=== PATIENT | male | born 1970 | race American Indian/Alaskan Native ===

== ENCOUNTER 2017-04-28 01:52 | Emergency (ER) | payer MEDICAID, OTHER ==
[2017-04-28] MEDS ORDERED: Atenolol 25 MG Tab PO ONE (02:05)
[2017-04-28 02:37] LABS: CHLORIDE,CL 108 mmol/L (101-111); SODIUM,NA 141 mmol/L (135-145)
--- NOTE | 2017-04-28 02:53 | EDM.PDOC ---
ED HPI GENERAL MEDICAL PROBLEM - General Chief Complaint: Drug or Alcohol Abuse Stated Complaint: MEDICAL CLEARANCE Time Seen by Provider: 04/28/17 02:00 Source of Information: Reports: Patient, Police History Limitations: Reports: Intoxication - History of Present Illness INITIAL COMMENTS - FREE TEXT/NARRATIVE: ED via [facility] for medical clearance. Patient reported to have been picked up on warrant and was intoxicated. Breathalyzed ETOH greater than 300 (312) so was sent to ED for clearance. Patient voices no c/o, Admits to have been drinking heavily past few days due to girlfriend being hospitalized, primarily Vodka and beer. Tearful that he is going to pen[facility]. - Related Data Allergies Allergy/AdvReac Type Severity Reaction Status Date / Time No Known Allergies Allergy Verified 04/28/17 01:57 Home Meds: Home Meds Atenolol 0 mg PO ASDIRECTED 04/28/17 [History] Gabapentin [Neurontin] 600 mg PO ASDIRECTED 04/28/17 [History] Lisinopril 0 mg PO ASDIRECTED 04/28/17 [History] Past Medical History HEENT History: Reports: None Cardiovascular History: Reports: Hypertension Immunologic History: Reports: None Social & Family History - Tobacco Use Smoking Status *Q: Never Smoker - Recreational Drug Use Recreational Drug Use: No ED ROS GENERAL - Review of Systems Review Of Systems: ROS reveals no pertinent complaints other than HPI. ED EXAM, BEHAVIORAL HEALTH - Physical Exam Exam: See Below Exam Limited By: Intoxication General Appearance: Alert, No Apparent Distress, Obese Eye Exam: Bilateral Eye: EOMI, PERRL Ears: Normal External Exam, Hearing Loss Throat/Mouth: Normal Inspection Head: Atraumatic, Normocephalic Neck: Normal Inspection, Full Range of Motion Respiratory/Chest: No Respiratory Distress, Lungs Clear, Normal Breath Sounds Cardiovascular: Normal Peripheral Pulses GI/Abdominal: Normal Bowel Sounds Back Exam: Normal Inspection Extremities: Normal Inspection Neurological: Alert, Oriented x 3, Other (responses slow) Psychiatric: Alert, Normal Affect, Depressed Mood, Tearful. No: Suicidal Thoughts Skin Exam: Warm, Dry, Intact, Normal color COURSE, BEHAVIORAL HEALTH COMP - Course Vital Signs: Last Vital Signs Temp 98.9 F 04/28/17 01:58 Pulse 110 H 04/28/17 02:24 Resp 18 04/28/17 02:24 BP 139/89 04/28/17 02:24 Pulse Ox 95 04/28/17 02:24 Orders, Labs, Meds: Laboratory Tests 04/28/17 04/28/17 04/28/17 Range/Units 02:07 02:07 02:10 WBC 6.5 (5.0-10.0) 10^3/uL RBC 5.05 (4.6-6.2) 10^6/uL Hgb 16.1 (14.0-18.0) g/dL Hct 47.5 (40.0-54.0) % MCV 94.1 (80-100) fL MCH 31.9 (27.0-34.0) pg MCHC 33.9 (33.0-35.0) g/dL Plt Count 148 L (150-450) 10^3/uL Neut % (Auto) 70.6 (42.2-75.2) % Lymph % (Auto) 20.5 (20.5-50.1) % [place] % (Auto) 6.7 (2-8) % Eos % (Auto) 1.7 (1.0-3.0) % Baso % (Auto) 0.5 (0.0-1.0) % Sodium (135-145) mmol/L Potassium (3.6-5.0) mmol/L Chloride (101-111) mmol/L Carbon Dioxide (21.0-31.0) mmol/L Anion Gap BUN (7-18) mg/dL Creatinine (0.6-1.3) mg/dL Est Cr Clr Drug Dosing Estimated GFR (MDRD) BUN/Creatinine Ratio Glucose (74-105) mg/dL Calcium (8.4-10.2) mg/dl Total Bilirubin (0.2-1.0) mg/dL AST (10-42) IU/L ALT (10-60) IU/L Alkaline Phosphatase (42-121) IU/L Total Protein (6.7-8.2) g/dl Albumin (3.2-5.5) g/dl Globulin Albumin/Globulin Ratio Urine Color Yellow (YELLOW) Urine Appearance Clear (CLEAR) Urine pH 5.5 (5.0-9.0) Ur Specific [place] <= 1.005 (1.005-1.030) Urine Protein 30 H (NEGATIVE) Urine Glucose (UA) Negative (NEGATIVE) Urine Ketones Negative (NEGATIVE) Urine Occult Blood Negative (NEGATIVE) Urine Nitrite Negative (NEGATIVE) Urine Bilirubin Negative (NEGATIVE) Urine Urobilinogen 0.2 (0.2-1.0) mg/dL Ur Leukocyte Esterase Negative (NEGATIVE) Urine RBC 0-5 /HPF Urine WBC 0-5 (0-5/HPF) /HPF Ur Epithelial Cells Few /HPF Urine Bacteria Moderate H (0-FEW/HPF) /HPF Urine Opiates Screen Negative (NEGATIVE) Ur Oxycodone Screen Negative (NEGATIVE) Urine Methadone Screen Negative (NEGATIVE) Ur Barbiturates Screen Negative (NEGATIVE) U Tricyclic Antidepress Negative (NEGATIVE) Ur Phencyclidine Scrn Negative (NEGATIVE) Ur Amphetamine Screen Negative (NEGATIVE) U Methamphetamines Scrn Positive H (NEGATIVE) Urine MDMA Screen Negative (NEGATIVE) U Benzodiazepines Scrn Negative (NEGATIVE) Urine Cocaine Screen Negative (NEGATIVE) U Marijuana (THC) Screen Negative (NEGATIVE) Ethyl Alcohol mg/dL 04/28/17 Range/Units 02:10 WBC (5.0-10.0) 10^3/uL RBC (4.6-6.2) 10^6/uL Hgb (14.0-18.0) g/dL Hct (40.0-54.0) % MCV (80-100) fL MCH (27.0-34.0) pg MCHC (33.0-35.0) g/dL Plt Count (150-450) 10^3/uL Neut % (Auto) (42.2-75.2) % Lymph % (Auto) (20.5-50.1) % [place] % (Auto) (2-8) % Eos % (Auto) (1.0-3.0) % Baso % (Auto) (0.0-1.0) % Sodium 141 (135-145) mmol/L Potassium 3.6 (3.6-5.0) mmol/L Chloride 108 (101-111) mmol/L Carbon Dioxide 21.0 (21.0-31.0) mmol/L Anion Gap 15.6 BUN 7 (7-18) mg/dL Creatinine 0.9 (0.6-1.3) mg/dL Est Cr Clr Drug Dosing TNP Estimated GFR (MDRD) > 60 BUN/Creatinine Ratio 7.77 Glucose 150 H (74-105) mg/dL Calcium 8.4 (8.4-10.2) mg/dl Total Bilirubin 0.5 (0.2-1.0) mg/dL AST 66 H (10-42) IU/L ALT 40 (10-60) IU/L Alkaline Phosphatase 100 (42-121) IU/L Total Protein 8.4 H (6.7-8.2) g/dl Albumin 4.1 (3.2-5.5) g/dl Globulin 4.3 Albumin/Globulin Ratio 0.95 Urine Color (YELLOW) Urine Appearance (CLEAR) Urine pH (5.0-9.0) Ur Specific [place] (1.005-1.030) Urine Protein (NEGATIVE) Urine Glucose (UA) (NEGATIVE) Urine Ketones (NEGATIVE) Urine Occult Blood (NEGATIVE) Urine Nitrite (NEGATIVE) Urine Bilirubin (NEGATIVE) Urine Urobilinogen (0.2-1.0) mg/dL Ur Leukocyte Esterase (NEGATIVE) Urine RBC /HPF Urine WBC (0-5/HPF) /HPF Ur Epithelial Cells /HPF Urine Bacteria (0-FEW/HPF) /HPF Urine Opiates Screen (NEGATIVE) Ur Oxycodone Screen (NEGATIVE) Urine Methadone Screen (NEGATIVE) Ur Barbiturates Screen (NEGATIVE) U Tricyclic Antidepress (NEGATIVE) Ur Phencyclidine Scrn (NEGATIVE) Ur Amphetamine Screen (NEGATIVE) U Methamphetamines Scrn (NEGATIVE) Urine MDMA Screen (NEGATIVE) U Benzodiazepines Scrn (NEGATIVE) Urine Cocaine Screen (NEGATIVE) U Marijuana (THC) Screen (NEGATIVE) Ethyl Alcohol 342 mg/dL Medications Discontinued Medications Generic Name Dose Route Start Last Admin Trade Name Freq PRN Reason Stop Dose Admin Atenolol 25 mg 04/28/17 02:05 04/28/17 02:14 Tenormin PO 04/28/17 02:06 25 mg ONETIME ONE Administration Departure - Departure Time of Disposition: 02:50 Disposition: Home, Self-Care 01 Condition: fair Clinical Impression: Alcohol abuse, Drug abuse - Discharge Information Instructions: Alcohol Intoxication, [id number] Forms: ED Department Discharge Additional Instructions: Detox [facility] nurse to assess per facility detox protocol
--- NOTE | 2017-06-01 12:45 | EKG ---
04/28/2017 - STEVIE ZUÑIGA - A 12-lead EKG shows sinus tachycardia with heart rate of 127. No significant ST elevation or ST depression noted on this 12-lead EKG. [facility] /[id number]
== END 2017-04-28 02:56 | disposition home or self-care (01) ==
LOC: DL.ED 01:52
DX: F10.10 Alcohol abuse, uncomplicated (principal); F19.10 Other psychoactive substance abuse, uncomplicated; I10 Essential (primary) hypertension; Y90.8 Blood alcohol level of 240 mg/100 ml or more
CPT/HCPCS: 36415; 80053; 80305; 81001; 85025; 93005; 99283; A9270; G0480

== ENCOUNTER 2018-07-17 17:06 | Emergency (ER) | payer MEDICAID, OTHER ==
[2018-07-17 17:11] VITALS: BP 152/90
[2018-07-17] MEDS ORDERED: Iopamidol 612 MG/ML 100 ML Bottle IUTERINE ONE (18:00)
[2018-07-17 18:02] LABS: ACETAMINOPHEN < 10
--- NOTE | 2018-07-17 18:48 | EDM.PDOC ---
Scribed by Rosalba Garcia 07/17/18 1435 for Dhiraj Ramos PA <Dhiraj Ramos - Last Filed: 07/17/18 18:48> ED HPI GENERAL MEDICAL PROBLEM - General Chief Complaint: Gastrointestinal Problem Stated Complaint: GENERALIZED WEAKNESS Time Seen by Provider: 07/17/18 17:11 Source of Information: Reports: Patient, EMS, EMS Notes Reviewed, RN, RN Notes Reviewed History Limitations: Reports: No Limitations - History of Present Illness INITIAL COMMENTS - FREE TEXT/NARRATIVE: This is a 47-year-old man with a history of alcohol abuse, essential hypertension and asthma who was transferred here from [facility] for generalized weakness, thrombocytopenia and hyperbilirubinemia. presents to [facility] with 3 days of generalized weakness. Symptoms are associated with nausea and several episodes of vomiting of food contents. The patient also has lightheadedness that is worse when he stands. No abdominal pain, jaundice, melena or blood in his stool. No dysuria or frequency. No shortness of breath, wheezing,cough or chest pain. The patient does have a history of chronic alcohol abuse. He drinks about 10 beers a day with several shots of hard liquor. Last drink was done week ago. Patient denies IV drug use. Patient has been taking 8 to 9 tablets of Tylenol and 6 to 7 tablets of Ibuprofen per day for the last week for his osteoarthritic complaints. Onset: Gradual Duration: Constant Location: Reports: Generalized (weakness) Severity: Moderate Improves with: Reports: Rest Worsens with: Reports: Other (activity) - Related Data Allergies Allergy/AdvReac Type Severity Reaction Status Date / Time Penicillins Allergy Nausea and Verified 07/17/18 17:12 Vomiting Home Meds: Home Meds Atenolol 100 mg PO DAILY 04/28/17 [History] Gabapentin [Neurontin] 600 mg PO TID 04/28/17 [History] Albuterol Sulfate [Proair Hfa] 2 puff INH Q4HR PRN 07/17/18 [History] Loratadine 10 mg PO DAILY 07/17/18 [History] Losartan Potassium 25 mg PO DAILY 07/17/18 [History] Past Medical History HEENT History: Reports: None Cardiovascular History: Reports: Hypertension Respiratory History: Reports: Asthma Immunologic History: Reports: None Social & Family History - Alcohol Use Alcohol Use History: Yes Days Per Week of Alcohol Use: 7 Number of Drinks Per Day Comment: 12 - Recreational Drug Use Recreational Drug Use: No ED ROS GENERAL - Review of Systems Review Of Systems: ROS reveals no pertinent complaints other than HPI. ED EXAM, GI/ABD - Physical Exam Exam: See Below Exam Limited By: No Limitations General Appearance: Alert, WD/WN, No Apparent Distress Eyes: Bilateral: Normal Appearance Nose: Normal Inspection, Normal Mucosa, No Blood Head: Atraumatic, Normocephalic Neck: Normal Inspection, Supple, Non-Tender, Full Range of Motion Respiratory/Chest: No Respiratory Distress, Lungs Clear, Normal Breath Sounds, No Accessory Muscle Use, Chest Non-Tender Cardiovascular: Normal Peripheral Pulses, Regular Rate, Rhythm, No Edema, No Gallop, No JVD, No Murmur, No Rub GI/Abdominal Exam: Normal Bowel Sounds, Soft, Non-Tender, No Organomegaly, No Distention, No Abnormal Bruit, No Mass, Pelvis Stable (Male) Exam: Deferred Rectal (Males) Exam: Deferred Extremities: Normal Inspection, Normal Range of Motion, Non-Tender, Normal Capillary Refill, No Pedal Edema Neurological: Alert, Oriented, CN II-XII Intact, Normal Cognition, Normal Gait, Normal Reflexes, No Motor/Sensory Deficits Psychiatric: Normal Affect, Normal Mood Course - Vital Signs Last Recorded V/S: Last Vital Signs Temp 98.7 F 07/17/18 17:06 Pulse 71 07/17/18 17:06 Resp 18 07/17/18 17:06 BP 152/90 H 07/17/18 17:06 Pulse Ox 95 07/17/18 17:06 - Orders/Labs/Meds Orders: Active Orders 24 hr Category Date Time Status DRUG SCREEN URINE BIORAD [URCHEM] Stat Lab 07/17/18 17:21 Ordered UA W/MICROSCOPIC [URIN] Stat Lab 07/17/18 17:21 Ordered Labs: Laboratory Tests 07/17/18 07/17/18 Range/Units 17:27 17:27 Magnesium 1.5 L (1.8-2.5) mg/dL Ammonia 69 H (11-35) umol/L Amylase 44 (28-100) U/L Lipase 73 H (22-51) U/L Salicylates < 4 Acetaminophen < 10 Meds: Medications Discontinued Medications Generic Name Dose Route Start Last Admin Trade Name Freq PRN Reason Stop Dose Admin Iopamidol 100 ml 07/17/18 18:00 Isovue-300 (61%) IUTERINE 07/17/18 18:01 ONETIME ONE Departure - Departure Disposition: Home, Self-Care 01 Clinical Impression: Gastroenteritis Cholelithiasis Qualifiers: Cholelithiasis location: other site Biliary obstruction: without biliary obstruction Qualified Code(s): K80.80 - Other cholelithiasis without obstruction Cirrhosis of liver Qualifiers: Hepatic cirrhosis type: alcoholic cirrhosis Ascites presence: without ascites Qualified Code(s): K70.30 - Alcoholic cirrhosis of liver without ascites - Discharge Information Instructions: Cholelithiasis, [id number], Viral Gastroenteritis, Adult, Easy- to-Read, Cirrhosis Forms: ED Department Discharge Additional Instructions: Follow up with your primary care facility Refrain from drinking alcohol <Salma Sanders - Last Filed: 07/17/18 19:37> Course - Re-Assessments/Exams Free Text/Narrative Re-Assessment/Exam: 07/17/18 19:34 CT Abdomen and Pelvis: Findings consistent with cirrhosis, Gastroduodenitis, Cholelithiasis See rad report Departure - Departure Time of Disposition: 19:35 Condition: Fair - Discharge Information *PRESCRIPTION DRUG MONITORING PROGRAM REVIEWED*: No *COPY OF PRESCRIPTION DRUG MONITORING REPORT IN PATIENT KELSIE: No I have read and agree with the documentation that has been completed regarding this visit. By signing this record, I attest that the documentation was completed in my physical presence and is an accurate record of the encounter.
== END 2018-07-17 19:43 | disposition home or self-care (01) ==
LOC: DL.ED 17:06
DX: K52.9 Noninfective gastroenteritis and colitis, unspecified (principal); K80.80 Other cholelithiasis without obstruction; K70.30 Alcoholic cirrhosis of liver without ascites; I10 Essential (primary) hypertension; Z79.899 Other long term (current) drug therapy; Z88.0 Allergy status to penicillin
CPT/HCPCS: 36415; 74177; 82140; 82150; 83690; 83735; 99285; G0480; Q9967

== ENCOUNTER 2019-11-28 18:45 | Emergency (ER) | payer MEDICAID, OTHER ==
[2019-11-28] MEDS ORDERED: levETIRAcetam 500 MG in Sodium Chloride 0.9% 100 ML IV ONE (19:17)
[2019-11-28 20:10] LABS: CHLORIDE,CL 102 mmol/L (101-111); SODIUM,NA 134 mmol/L (135-145)
[2019-11-28 20:28] VITALS: BP 118/59; PULSE 82
[2019-11-28] MEDS ORDERED: Lactulose Soln 10 GM/15 ML 30 ML UD Cup PO ONE ×2 (20:47→20:48)
--- NOTE | 2019-11-28 20:53 | EDM.PDOC ---
ED HPI GENERAL MEDICAL PROBLEM - General Chief Complaint: Neurological Problem Stated Complaint: GENERAL, AMBULANCE? Time Seen by Provider: 11/28/19 20:30 Source of Information: Reports: Patient, EMS History Limitations: Reports: No Limitations - History of Present Illness INITIAL COMMENTS - FREE TEXT/NARRATIVE: ED with report of witnessed seizure generalized and urinary incontinence lasting 3-4 minutes. Postictal period of confusion and lethargy. Patient alert and oriented on arrival. Denies injury. States has not been sleeping well due to arthritis pain. Denies use of alcohol or drugs. Appears jaundice. patient denies noticing. Has not had recent vomiting. Has been using creams supplied by [facility] for pain. States has not used any tylenol or ibuprofen type products for many months since was causing elevation in BP - Related Data Allergies Allergy/AdvReac Type Severity Reaction Status Date / Time Penicillins Allergy Nausea and Verified 11/28/19 18:51 Vomiting Home Meds: Home Meds atenoloL [Atenolol] 100 mg PO DAILY 04/28/17 [History] Albuterol Sulfate [Proair Hfa] 2 puff INH Q4HR PRN 07/17/18 [History] Loratadine 10 mg PO DAILY 07/17/18 [History] Losartan Potassium 25 mg PO DAILY 07/17/18 [History] Past Medical History HEENT History: Reports: None Cardiovascular History: Reports: Hypertension Respiratory History: Reports: Asthma Musculoskeletal History: Reports: Arthritis Neurological History: Reports: Neuropathy, Peripheral Immunologic History: Reports: None Social & Family History - Family History Family Medical History: Noncontributory - Tobacco Use Smoking Status *Q: Unknown Ever Smoked Second Hand Smoke Exposure: No - Caffeine Use Caffeine Use: Reports: None - Recreational Drug Use Recreational Drug Use: No ED ROS GENERAL - Review of Systems Review Of Systems: Comprehensive ROS is negative, except as noted in HPI. - Physical Exam Exam: See Below Exam Limited By: No Limitations General Appearance: Alert, No Apparent Distress, Obese Eye Exam: Bilateral Eye: EOMI, PERRL, Other (icterus) Ears: Normal External Exam, Normal TMs Nose: Normal Inspection Throat/Mouth: Normal Inspection, Normal Lips, Normal Voice Head Exam: Atraumatic, Normocephalic Neck: Normal Inspection Respiratory/Chest: No Respiratory Distress, Lungs Clear, Normal Breath Sounds Cardiovascular: Normal Peripheral Pulses, Regular Rate, Rhythm GI/Abdominal: Normal Bowel Sounds, Non-Tender Neuro Exam (Abbreviated): Alert, Oriented, Normal Cognition, No Motor/Sensory Deficits Back Exam: Full Range of Motion Extremities: Normal Range of Motion Psychiatric: Flat Affect Skin Exam: Warm, Dry, Intact, Jaundice. No: Petechiae, Rash Course - Vital Signs Last Recorded V/S: Last Vital Signs Temp 98.2 F 11/28/19 20:26 Pulse 82 11/28/19 20:26 Resp 16 11/28/19 20:26 BP 118/59 L 11/28/19 20:26 Pulse Ox 97 11/28/19 20:26 - Orders/Labs/Meds Orders: Active Orders 24 hr Category Date Time Status EKG 12 Lead [EKG Documentation Completion] [RC] URGENT Care 11/28/19 19:21 Active Labs: Laboratory Tests 11/28/19 11/28/19 11/28/19 Range/Units 19:34 19:34 19:34 WBC 4.1 L (5.0-10.0) 10^3/uL RBC 3.19 L (4.6-6.2) 10^6/uL Hgb 11.2 L D (14.0-18.0) g/dL Hct 32.9 L (40.0-54.0) % MCV 103.1 H D (80-100) fL MCH 35.1 H (27.0-34.0) pg MCHC 34.0 (33.0-35.0) g/dL Plt Count 67 L D (150-450) 10^3/uL Neut % (Auto) 66.2 (42.2-75.2) % Lymph % (Auto) 13.0 L (20.5-50.1) % [place] % (Auto) 18.6 H (2-8) % Eos % (Auto) 1.7 (1.0-3.0) % Baso % (Auto) 0.5 (0.0-1.0) % PT (9.0-12.0) SEC INR (0.9-1.2) Sodium 134 L (135-145) mmol/L Potassium 4.0 (3.6-5.0) mmol/L Chloride 102 (101-111) mmol/L Carbon Dioxide 22.0 (21.0-31.0) mmol/L Anion Gap 14.0 BUN 8 (7-18) mg/dL Creatinine 0.8 (0.6-1.3) mg/dL Est Cr Clr Drug Dosing 104.43 mL/min Estimated GFR (MDRD) > 60 BUN/Creatinine Ratio 10.00 Glucose 160 H (74-105) mg/dL Calcium 7.5 L (8.4-10.2) mg/dl Magnesium 1.7 L (1.8-2.5) mg/dL Total Bilirubin 7.0 H (0.2-1.0) mg/dL AST 85 H (10-42) IU/L ALT 25 (10-60) IU/L Alkaline Phosphatase 221 H (42-121) IU/L Ammonia 66 H (11-35) umol/L Total Protein 7.0 (6.7-8.2) g/dl Albumin 2.4 L (3.2-5.5) g/dl Globulin 4.6 Albumin/Globulin Ratio 0.52 Amylase 71 (28-100) U/L Lipase 82 H (22-51) U/L Urine Color (YELLOW) Urine Appearance (CLEAR) Urine pH (5.0-9.0) Ur Specific [place] (1.005-1.030) Urine Protein (NEGATIVE) Urine Glucose (UA) (NEGATIVE) Urine Ketones (NEGATIVE) Urine Occult Blood (NEGATIVE) Urine Nitrite (NEGATIVE) Urine Bilirubin (NEGATIVE) Urine Urobilinogen (0.2-1.0) mg/dL Ur Leukocyte Esterase (NEGATIVE) Urine RBC /HPF Urine WBC (0-5/HPF) /HPF Ur Epithelial Cells (NOT SEEN) /HPF Amorphous Sediment (NOT SEEN) /HPF Urine Bacteria (0-FEW/HPF) /HPF Hyaline Casts (NOT SEEN) /LPF Urine Mucus (NOT SEEN) /LPF Urine Opiates Screen (NEGATIVE) Ur Oxycodone Screen (NEGATIVE) Urine Methadone Screen (NEGATIVE) Ur Barbiturates Screen (NEGATIVE) U Tricyclic Antidepress (NEGATIVE) Ur Phencyclidine Scrn (NEGATIVE) Ur Amphetamine Screen (NEGATIVE) U Methamphetamines Scrn (NEGATIVE) Urine MDMA Screen (NEGATIVE) U Benzodiazepines Scrn (NEGATIVE) Urine Cocaine Screen (NEGATIVE) U Marijuana (THC) Screen (NEGATIVE) Ethyl Alcohol < 5 mg/dL 11/28/19 11/28/19 11/28/19 Range/Units 19:34 20:20 20:20 WBC (5.0-10.0) 10^3/uL RBC (4.6-6.2) 10^6/uL Hgb (14.0-18.0) g/dL Hct (40.0-54.0) % MCV (80-100) fL MCH (27.0-34.0) pg MCHC (33.0-35.0) g/dL Plt Count (150-450) 10^3/uL Neut % (Auto) (42.2-75.2) % Lymph % (Auto) (20.5-50.1) % Scott % (Auto) (2-8) % Eos % (Auto) (1.0-3.0) % Baso % (Auto) (0.0-1.0) % PT 16.2 H (9.0-12.0) SEC INR 1.6 H (0.9-1.2) Sodium (135-145) mmol/L Potassium (3.6-5.0) mmol/L Chloride (101-111) mmol/L Carbon Dioxide (21.0-31.0) mmol/L Anion Gap BUN (7-18) mg/dL Creatinine (0.6-1.3) mg/dL Est Cr Clr Drug Dosing mL/min Estimated GFR (MDRD) BUN/Creatinine Ratio Glucose (74-105) mg/dL Calcium (8.4-10.2) mg/dl Magnesium (1.8-2.5) mg/dL Total Bilirubin (0.2-1.0) mg/dL AST (10-42) IU/L ALT (10-60) IU/L Alkaline Phosphatase (42-121) IU/L Ammonia (11-35) umol/L Total Protein (6.7-8.2) g/dl Albumin (3.2-5.5) g/dl Globulin Albumin/Globulin Ratio Amylase (28-100) U/L Lipase (22-51) U/L Urine Color [place] (YELLOW) Urine Appearance Slightly cloudy (CLEAR) Urine pH 5.5 (5.0-9.0) Ur Specific [place] >= 1.030 (1.005-1.030) Urine Protein 30 H (NEGATIVE) Urine Glucose (UA) Negative (NEGATIVE) Urine Ketones Negative (NEGATIVE) Urine Occult Blood Small H (NEGATIVE) Urine Nitrite Negative (NEGATIVE) Urine Bilirubin Moderate H (NEGATIVE) Urine Urobilinogen 2.0 H (0.2-1.0) mg/dL Ur Leukocyte Esterase Negative (NEGATIVE) Urine RBC 5-10 H /HPF Urine WBC 5-10 H (0-5/HPF) /HPF Ur Epithelial Cells Rare (NOT SEEN) /HPF Amorphous Sediment Few (NOT SEEN) /HPF Urine Bacteria Few (0-FEW/HPF) /HPF Hyaline Casts Rare H (NOT SEEN) /LPF Urine Mucus Few H (NOT SEEN) /LPF Urine Opiates Screen Negative (NEGATIVE) Ur Oxycodone Screen Negative (NEGATIVE) Urine Methadone Screen Negative (NEGATIVE) Ur Barbiturates Screen Negative (NEGATIVE) U Tricyclic Antidepress Negative (NEGATIVE) Ur Phencyclidine Scrn Negative (NEGATIVE) Ur Amphetamine Screen Negative (NEGATIVE) U Methamphetamines Scrn Negative (NEGATIVE) Urine MDMA Screen Negative (NEGATIVE) U Benzodiazepines Scrn Negative (NEGATIVE) Urine Cocaine Screen Negative (NEGATIVE) U Marijuana (THC) Screen Negative (NEGATIVE) Ethyl Alcohol mg/dL Meds: Medications Discontinued Medications Generic Name Dose Route Start Last Admin Trade Name Freq PRN Reason Stop Dose Admin Levetiracetam 500 mg/ Sodium 105 mls @ 400 mls/hr 11/28/19 19:17 11/28/19 19: 34 Chloride IV 11/28/19 19:31 400 mls/hr ONETIME ONE Administration Lactulose 20 gm 11/28/19 20:47 Cephulac PO 11/28/19 20:48 ONETIME ONE Lactulose 20 gm 11/28/19 20:48 11/28/19 21:09 Cephulac PO 11/28/19 20:49 Not Given ONETIME ONE - Re-Assessments/Exams Free Text/Narrative Re-Assessment/Exam: Transfer to [facility] recommended for further evaluation of jaundice with elevated LFT's and ammonia level. Family at bedside during discussion. Patient made aware of risk or further seizure activity, bleeding and up to from possible complications, continued to refuse despite encouragement from sister. Patient signed AMA form. Recommended Lactulose. Refused initial dose. Departure - Departure Time of Disposition: 20:50 Disposition: Against Medical Advice 07 Condition: Serious Clinical Impression: Hepatic encephalopathy, Hyperammonemia, Seizure, Thrombocytopenia Liver function failure Qualifiers: Liver failure chronicity: acute Hepatic coma status: without hepatic coma Qualified Code(s): K72.00 - Acute and subacute hepatic failure without coma - Discharge Information *PRESCRIPTION DRUG MONITORING PROGRAM REVIEWED*: No *COPY OF PRESCRIPTION DRUG MONITORING REPORT IN PATIENT KELSIE: No Instructions: Hepatic Encephalopathy Forms: ED Department Discharge Additional Instructions: clinic follow up on Sunday No driving No acetaminophin No alcohol lactulose 30mg twice daily Sepsis Event Note - Evaluation Sepsis Screening Result: No Definite Risk - Focused Exam Vital Signs: Vital Signs Temp Pulse Resp BP Pulse Ox 11/28/19 20:26 98.2 F 82 16 118/59 L 97 Date Exam was Performed: 11/29/19 Time Exam was Performed: 05:08 - My Orders Last 24 Hours: My Active Orders 11/28/19 19:21 EKG 12 Lead [EKG Documentation Completion] [RC] URGENT - Assessment/Plan Last 24 Hours: My Active Orders 11/28/19 19:21 EKG 12 Lead [EKG Documentation Completion] [RC] URGENT
== END 2019-11-28 20:47 | disposition left against medical advice (07) ==
LOC: DL.ED 18:45
DX: R56.9 Unspecified convulsions (principal); K72.00 Acute and subacute hepatic failure without coma; E72.20 Disorder of urea cycle metabolism, unspecified; D69.6 Thrombocytopenia, unspecified; J45.909 Unspecified asthma, uncomplicated; I10 Essential (primary) hypertension; M19.90 Unspecified osteoarthritis, unspecified site; Z88.0 Allergy status to penicillin; Z79.899 Other long term (current) drug therapy
CPT/HCPCS: 36415; 70450; 80053; 80305; 80320; 81001; 82140; 82150; 83690; 83735; 85025; 85610; 93005; 99285; J1953; J7050; G0480

== ENCOUNTER 2020-02-21 23:10 | Emergency (ER) | payer MEDICAID, OTHER ==
[2020-02-21 23:25] VITALS: BP 116/67; PULSE 128
--- NOTE | 2020-02-21 23:33 | EDM.PDOC ---
ED HPI GENERAL MEDICAL PROBLEM - General Chief Complaint: Neurological Problem Stated Complaint: AMBULANCE Time Seen by Provider: 02/21/20 23:25 Source of Information: Reports: EMS History Limitations: Reports: Altered Mental Status - History of Present Illness INITIAL COMMENTS - FREE TEXT/NARRATIVE: EMS arrived at scene of pt in bed lying in vomit and faeces and urine and blood. family states pt quit drinking few days ago and had seizures. pt somnolent but arousable but doesn't verbalize. - Related Data Allergies Allergy/AdvReac Type Severity Reaction Status Date / Time Penicillins Allergy Nausea and Verified 02/21/20 23:37 Vomiting Home Meds: Home Meds atenoloL [Atenolol] 100 mg PO DAILY 04/28/17 [History] Albuterol Sulfate [Proair Hfa] 2 puff INH Q4HR PRN 07/17/18 [History] Loratadine 10 mg PO DAILY 07/17/18 [History] Losartan Potassium 25 mg PO DAILY 07/17/18 [History] Past Medical History HEENT History: Reports: None Cardiovascular History: Reports: Hypertension Respiratory History: Reports: Asthma Musculoskeletal History: Reports: Arthritis Neurological History: Reports: Neuropathy, Peripheral Immunologic History: Reports: None Social & Family History - Family History Family Medical History: Noncontributory - Caffeine Use Caffeine Use: Reports: None ED ROS GENERAL - Review of Systems Review Of Systems: Comprehensive ROS is negative, except as noted in HPI. - Physical Exam Exam: See Below Exam Limited By: No Limitations General Appearance: Other (somnolent, incontinent of bowel and bladder.) Eye Exam: Bilateral Eye: PERRL (pupils ess ER @ 4mm, jaundiced) Ears: Hearing Grossly Normal Throat/Mouth: Normal Inspection Head Exam: Atraumatic Neck: Non-Tender, Full Range of Motion Respiratory/Chest: No Respiratory Distress Cardiovascular: Regular Rate, Rhythm GI/Abdominal: Soft, Non-Tender Rectal (Males) Exam: Black Stool, Heme + Stool Neuro Exam (Abbreviated): Slow to Respond Psychiatric: Other (somnolent) Skin Exam: Jaundice Course - Vital Signs Last Recorded V/S: Last Vital Signs Temp 36.4 C 02/21/20 23:24 Pulse 128 H 02/21/20 23:24 Resp 15 02/21/20 23:24 BP 116/67 02/21/20 23:24 Pulse Ox 93 L 02/21/20 23:24 - Orders/Labs/Meds Orders: Active Orders 24 hr Category Date Time Status EKG 12 Lead [EKG Documentation Completion] [RC] URGENT Care 02/21/20 23:36 Active Labs: Laboratory Tests 02/21/20 02/21/20 02/21/20 Range/Units 23:23 23:23 23:23 WBC 9.0 (5.0-10.0) 10^3/uL RBC 2.19 L (4.6-6.2) 10^6/uL Hgb 7.4 L D (14.0-18.0) g/dL Hct 23.2 L (40.0-54.0) % MCV 105.9 H (80-100) fL MCH 33.8 (27.0-34.0) pg MCHC 31.9 L (33.0-35.0) g/dL Plt Count 72 L (150-450) 10^3/uL Neut % (Auto) 86.3 H (42.2-75.2) % Lymph % (Auto) 3.8 L (20.5-50.1) % Putnam % (Auto) 9.8 H (2-8) % Eos % (Auto) 0.0 L (1.0-3.0) % Baso % (Auto) 0.1 (0.0-1.0) % Add Manual Diff Yes Neutrophils % (Manual) 80 H (42-75) % Band Neutrophils % 7 % Lymphocytes % (Manual) 3 L (20-50) % Monocytes % (Manual) 10 H (2-8) % PT (9.0-12.0) SEC INR (0.9-1.2) APTT (22.0-34.0) SEC Sodium 135 L (136-145) mmol/L Potassium 3.7 (3.5-5.1) mmol/L Chloride 92 L (98-107) mmol/L Carbon Dioxide 15 L (21-32) mmol/L Anion Gap 31.7 H (7-13) mEq/L BUN 29 H (7-18) mg/dL Creatinine 2.33 H (0.70-1.30) mg/dL Est Cr Clr Drug Dosing TNP Estimated GFR (MDRD) 30 BUN/Creatinine Ratio 12.4 (No establ ref range) Glucose 119 H (74-99) mg/dL Lactic Acid (0.4-2.0) mmol/L Calcium 7.4 L (8.5-10.1) mg/dL Total Bilirubin 8.1 H (0.2-1.0) mg/dL AST 170 H (15-37) U/L ALT 42 (16-63) U/L Alkaline Phosphatase 117 H (46-116) U/L Ammonia 182 H (11-32) umol/L Total Protein 6.5 (6.4-8.2) g/dL Albumin 2.0 L (3.4-5.0) g/dL Globulin 4.5 Albumin/Globulin Ratio 0.44 Ethyl Alcohol < 3 (0) mg/dL 02/21/20 02/21/20 Range/Units 23:23 23:32 WBC (5.0-10.0) 10^3/uL RBC (4.6-6.2) 10^6/uL Hgb (14.0-18.0) g/dL Hct (40.0-54.0) % MCV (80-100) fL MCH (27.0-34.0) pg MCHC (33.0-35.0) g/dL Plt Count (150-450) 10^3/uL Neut % (Auto) (42.2-75.2) % Lymph % (Auto) (20.5-50.1) % [place] % (Auto) (2-8) % Eos % (Auto) (1.0-3.0) % Baso % (Auto) (0.0-1.0) % Add Manual Diff Neutrophils % (Manual) (42-75) % Band Neutrophils % % Lymphocytes % (Manual) (20-50) % Monocytes % (Manual) (2-8) % PT 27.9 H D (9.0-12.0) SEC INR 3.0 H (0.9-1.2) APTT 42.6 H (22.0-34.0) SEC Sodium (136-145) mmol/L Potassium (3.5-5.1) mmol/L Chloride (98-107) mmol/L Carbon Dioxide (21-32) mmol/L Anion Gap (7-13) mEq/L BUN (7-18) mg/dL Creatinine (0.70-1.30) mg/dL Est Cr Clr Drug Dosing Estimated GFR (MDRD) BUN/Creatinine Ratio (No establ ref range) Glucose (74-99) mg/dL Lactic Acid 24.2 H* (0.4-2.0) mmol/L Calcium (8.5-10.1) mg/dL Total Bilirubin (0.2-1.0) mg/dL AST (15-37) U/L ALT (16-63) U/L Alkaline Phosphatase (46-116) U/L Ammonia (11-32) umol/L Total Protein (6.4-8.2) g/dL Albumin (3.4-5.0) g/dL Globulin Albumin/Globulin Ratio Ethyl Alcohol (0) mg/dL Meds: Medications Discontinued Medications Generic Name Dose Route Start Last Admin Trade Name Freq PRN Reason Stop Dose Admin Multivitamins/Minerals 10 ml/ 1,011.2 mls @ 999 mls/hr 02/21/20 23:40 23:49 Folic Acid 1 mg/ Thiamine HCl IV 02/22/20 00:40 999 mls/hr 100 mg/ Lactated Ringer's ONETIME ONE Administration Ondansetron HCl 4 mg 02/21/20 23:39 02/21/20 23:50 Zofran IVPUSH 02/21/20 23:40 4 mg ONETIME ONE Administration Pantoprazole Sodium 80 mg 02/21/20 23:40 02/21/20 23:51 Protonix Iv IVPUSH 02/21/20 23:41 80 mg .BOLUS ONE Administration - Re-Assessments/Exams Free Text/Narrative Re-Assessment/Exam: 02/22/20 00:[address] Jung @ [facility] who kindly accepted pt. Departure - Departure Time of Disposition: 00:51 Disposition: DC/Tfer to Acute Hospital 02 Condition: Fair Clinical Impression: UGI bleed, LGI bleed, Hepatic encephalopathy, Hyperammonemia, Thrombocytopenia Liver function failure Qualifiers: Liver failure chronicity: acute Hepatic coma status: without hepatic coma Qualified Code(s): K72.00 - Acute and subacute hepatic failure without coma Cirrhosis of liver Qualifiers: Hepatic cirrhosis type: alcoholic cirrhosis Ascites presence: without ascites Qualified Code(s): K70.30 - Alcoholic cirrhosis of liver without ascites Anemia Qualifiers: Anemia type: unspecified type Qualified Code(s): D64.9 - Anemia, unspecified - Discharge Information Forms: Interfacility Transfer [facility] Sepsis Event Note - Evaluation Sepsis Screening Result: No Definite Risk - Focused Exam Vital Signs: Vital Signs Temp Pulse Resp BP Pulse Ox 02/21/20 23:24 36.4 C 128 H 15 116/67 93 L Date Exam was Performed: 02/22/20 Time Exam was Performed: 00:51 - My Orders Last 24 Hours: My Active Orders 02/21/20 23:36 EKG 12 Lead [EKG Documentation Completion] [RC] URGENT - Assessment/Plan Last 24 Hours: My Active Orders 02/21/20 23:36 EKG 12 Lead [EKG Documentation Completion] [RC] URGENT
[2020-02-21] MEDS ORDERED: Ondansetron 4 MG/2 ML SDV IVPUSH ONE (23:39)
[2020-02-21] MEDS ORDERED: MVI, Adult with Vitamin K 10 ML, Folic Acid 1 MG, Thiamine 100 MG in Lactated Ringers 1... IV ONE ×4 (23:40)
[2020-02-21] MEDS ORDERED: Pantoprazole 40 MG Vial IVPUSH ONE (23:40)
[2020-02-22 00:03] LABS: ANION GAP 31.7 mEq/L (7-13); CHLORIDE,CL 92 mmol/L (98-107)
[2020-02-22 00:05] LABS: PTT,PARTIAL THROMBOPLSTIN TIME 42.6 SEC (22.0-34.0)
[2020-02-22 00:21] LABS: SODIUM,NA 135 mmol/L (136-145)
[2020-02-22] MEDS ORDERED: Metoclopramide 10 MG/2 ML SDV IVPUSH ONE (01:19)
== END 2020-02-22 01:33 ==
LOC: DL.ED 23:10
DX: K72.00 Acute and subacute hepatic failure without coma (principal); K70.30 Alcoholic cirrhosis of liver without ascites; K92.2 Gastrointestinal hemorrhage, unspecified; D64.9 Anemia, unspecified; D69.6 Thrombocytopenia, unspecified; E72.20 Disorder of urea cycle metabolism, unspecified; I10 Essential (primary) hypertension; J45.909 Unspecified asthma, uncomplicated; Z88.1 Allergy status to other antibiotic agents; Z79.899 Other long term (current) drug therapy
CPT/HCPCS: 36415; 80053; 80307; 82140; 82272; 82962; 83605; 85025; 85610; 85730; 93005; 96365; 96366; 96375; 99285; C9113; J2405; J2765; J3411; J7120; 99284; J3490